=== PATIENT | female | born 1975 | race Caucasian/White ===

== ENCOUNTER 2017-12-17 12:16 | Observation (INO) | payer BC, OTHER, SELFPAY ==
[2017-12-17] VITALS (11 sets, daily range): BP systolic 92–126; BP diastolic 63–81; PULSE 61–71; RESP 16–19; TEMP 36.6–36.8; O2SAT 96–100; BMI 32.2; BMI 27.4; BMI 82.5
--- NOTE | 2017-12-17 12:27 | EKG12_ITS ---
Test Reason : REPEAT-CP Blood Pressure : / mmHG Vent. Rate : 064 BPM Atrial Rate : 064 BPM P-R Int : 176 ms QRS Dur : 096 ms QT Int : 426 ms P-R-T Axes : 012 009 019 degrees QTc Int : 439 ms Normal sinus rhythm Normal ECG Confirmed by SONYA GONCALVES, LEDY ([id number]), food editor RICH PARSONS ([id number]) on 12/20/2017 1:01:21 PM Referred By: SALEEM Confirmed By:LEDY HASSAN MD
--- NOTE | 2017-12-17 12:32 | RAD_ITS ---
STUDY: X-RAY CHEST REASON FOR EXAM: Female, 42 years old. Chest and back pain, short of breath. TECHNIQUE: Single portable frontal chest. COMPARISON: August 15, 2015. FINDINGS: The lungs are clear and expanded. There is no demonstrated pleural abnormality. Normal size heart. Normal mediastinum and flaca. Normal visualized pulmonary arteries. Normal visualized aortic arch and descending thoracic aorta. Normal visualized thoracic spine. Normal visualized ribs, clavicles, and shoulders. There is no demonstrated abnormality of the visualized soft tissue structures of the upper abdomen. RAD/Chest 1 View (Portable) IMPRESSION: Normal x-ray examination of the chest. Electronically Signed: Jerald Simon MD at 12:54 EDT , Service support ,
[2017-12-17] MEDS: Aspirin 81 MG TAB.CHEW 324 MG PO (12:48)
[2017-12-17] MEDS: 0.9% Normal Saline 1,000 ML 150 ML IV (12:50)
[2017-12-17 12:52] LABS: Absolute Lymphocyte Count 1.79 X10^3/ul (0.83-4.51); Absolute Neutrophil Count 5.7 X10^3/uL (2.0-7.7); Basophil# 0.02 X10^3/uL; Basophil% 0.2 % (0-1); Eosinophil# 0.05 X10^3/uL; Eosinophils% 0.6 % (0-5); Hematocrit 41.1 % (37-47); Hemoglobin 13.4 g/dl (12.0-15.0); Lymphocyte # 1.79 X10^3/ul (4.0); Lymphocyte % 22.1 % (19-41); Mean Corp Hgb Conc 32.6 g/gl (32-36); Mean Corpuscular Hgb 31.8 pg (27.0-32.0); Mean Corpuscular Volume 97.4 fL (81-99); Mean Platelet Vol. 9.6 fl (6.2-12.0); Monocyte# 0.55 X10^3/uL; Monocyte% 6.8 % (0-10); Neutrophil # 5.68 X10^3/uL (2.7-7.7); Neutrophil % 70.2 % (47-70); Platelet Count 184 K/mm3 (150-450); RBC Distribution Width CV 13.4 % (11.6-14.6); RBC Distribution Width SD 47.7 fl (35.1-43.9); Red Blood Count 4.22 M/mm3 (4.2-5.4); White Blood Count 8.1 K/mm3 (4.4-11.0)
[2017-12-17 12:56] LABS: POSITIVE COUNT NO; POSITIVE DIFFERENTIAL NO; POSITIVE MORPHOLOGY NO
[2017-12-17 13:01] LABS: D-Dimer Quantitative (DVT/PE) 0.28 FEU/ug/m (0.27-0.49)
[2017-12-17 13:09] LABS: Anion Gap 5 (5-15); BUN 13 mg/dL (7-18); BUN/Creat Ratio 13.9 RATIO (10-20); Calcium,Total 8.9 mg/dL (8.5-10.1); Chloride 105 mmol/L (98-107); Creatinine, Serum 0.94 mg/dL (0.55-1.02); EST Glomerular Filtration Rate 70 mL/min (>60); Est Glom Filt Rate - Afr Amer 85 mL/min (>60); Estimated Creatinine Clearance 65.81 ml/min; Glucose 97 mg/dL (74-106); Potassium 3.8 mmol/L (3.5-5.1); Sodium Level 139 mmol/L (136-145)
--- NOTE | 2017-12-17 13:13 | EKG12_ITS ---
Test Reason : CP Blood Pressure : / mmHG Vent. Rate : 073 BPM Atrial Rate : 073 BPM P-R Int : 170 ms QRS Dur : 100 ms QT Int : 408 ms P-R-T Axes : -01 010 025 degrees QTc Int : 449 ms Normal sinus rhythm Normal ECG Confirmed by SONYA GONCALVES, LEDY ([id number]), editor publications RICH PARSONS ([id number]) on 12/20/2017 1:01:34 PM Referred By: SALEEM Confirmed By:LEDY HASSAN MD
--- NOTE | 2017-12-17 13:14 | ED.VISSUMM ---
- ER Visit Summary Date of Service: 12/17/17 Chief Complaint: [S pain] History of Present Illness: The patient is a 42 F [presents to the emergency department chest discomfort that started around 1115. Patient states that she was at work when she developed sudden onset of retrosternal chest discomfort that went up into her head. Patient developed discomfort into her left arm and shoulder. Patient felt lightheaded and dizzy with it and short of breath. Patient currently rates her pain a 7 out of 10 and describes it as a crushing heaviness. Patient is never had symptoms like this before. She denies recent travel or surgery. Denies any abdominal pain.] Physical Examination: [HEENT-PERRLA, EOMI. Cranial nerves II through XII grossly intact. TMs clear. Mucous membranes moist. No adenopathy. Cardiovascular-regular rate and rhythm without murmur or ectopy Lungs-clear to auscultation, chest wall stable without crepitus or subcu emphysema Abdomen-normoactive bowel sounds, soft, nontender, no rebound or rigidity, no peritoneal signs. Extremities-intact ?4, normal range of motion, normal pulses, atraumatic] Test Results: [EKG obtained on arrival shows sinus rhythm with a ventricular rate of 73 bpm with no acute ST segment changes.] CBC with differential shows white blood cell count of 8.1, hemoglobin 13, hematocrit 41, platelets 24. Chemistries unremarkable. Troponin less than 0.02. D-dimer was 0.28. Chest x-ray showed nothing acute. Emergency Department Course and Treatment: [Patient received aspirin in the emergency department as well as sublingual nitro which really did not seem to improve her pain much therefore patient received fentanyl 25 mcg IV.] Treatment Plan: [Admit for further workup and evaluation] Disposition: [Admit] Impression: [Chest pain-rule out acute coronary syndrome] This note was generated with [employer] dictation software. It may contain incorrect words, spelling, and punctuation that were not noted in review of the chart prior to signing ED Disposition - Plan for ED Patient: Chief Complaint: Chest Pain Referrals: Gumaro Gil [Primary Care Provider] -
--- NOTE | 2017-12-17 13:17 | ED.DCSUM_ITS ---
- ER Visit Summary Date of Service: 12/17/17 Chief Complaint: [S pain] History of Present Illness: The patient is a 42 F [presents to the emergency department chest discomfort that started around 1115. Patient states that she was at work when she developed sudden onset of retrosternal chest discomfort that went up into her head. Patient developed discomfort into her left arm and shoulder. Patient felt lightheaded and dizzy with it and short of breath. Patient currently rates her pain a 7 out of 10 and describes it as a crushing heaviness. Patient is never had symptoms like this before. She denies recent travel or surgery. Denies any abdominal pain.] Physical Examination: [HEENT-PERRLA, EOMI. Cranial nerves II through XII grossly intact. TMs clear. Mucous membranes moist. No adenopathy. Cardiovascular-regular rate and rhythm without murmur or ectopy Lungs-clear to auscultation, chest wall stable without crepitus or subcu emphysema Abdomen-normoactive bowel sounds, soft, nontender, no rebound or rigidity, no peritoneal signs. Extremities-intact ?4, normal range of motion, normal pulses, atraumatic] Test Results: [EKG obtained on arrival shows sinus rhythm with a ventricular rate of 73 bpm with no acute ST segment changes.] CBC with differential shows white blood cell count of 8.1, hemoglobin 13, hematocrit 41, platelets 24. Chemistries unremarkable. Troponin less than 0.02. D-dimer was 0.28. Chest x- ray showed nothing acute. Emergency Department Course and Treatment: [Patient received aspirin in the emergency department as well as sublingual nitro which really did not seem to improve her pain much therefore patient received fentanyl 25 mcg IV.] Treatment Plan: [Admit for further workup and evaluation] Disposition: [Admit] Impression: [Chest pain-rule out acute coronary syndrome] This note was generated with [employer] dictation software. It may contain incorrect words, spelling, and punctuation that were not noted in review of the chart prior to signing ED Disposition - Plan for ED Patient: Chief Complaint: Chest Pain Referrals: Gumaro Gil [Primary Care Provider] -
--- NOTE | 2017-12-17 13:49 | PCM.HP.STD ---
Problem List (1) Chest pain Status: Acute (2) Hypertension Status: Chronic History of Present Illness Date of Admission: 12/17/17 Chief Complaint: chest pain. The patient is a 42 year old F she was doing some heavy lifting at work where she started experiencing midsternal chest pain. Pain went to her back, upper jaw and down her left arm causing some numbness. Patient stated that she felt like she was getting pinched in the middle of her chest. She did have some associated dizziness. No abdominal pain, no nausea or vomiting. Patient has never had any pain like this before. Patient does heavy lifting at work and at this occurred while she was working. It has persisted despite being given aspirin and nitroglycerin. Patient did decline the fentanyl. Patient is being admitted for further chest pain evaluation. [] Past Medical History Past Medical History (Chronic Problems): Chronic Problems Hypertension (Chronic) Allergies acetaminophen [From Darvocet-N] Allergy (Verified 12/17/17 12:20) Swelling propoxyphene [From Darvocet-N] Allergy (Verified 12/17/17 12:20) Swelling Home Medications: Ambulatory Orders Medication Instructions Recorded Metoprolol Tartrate [Lopressor 100 mg PO DAILY 08/15/15 (Beta Nato)] Lorazepam [Ativan] 1 mg PO DAILY PRN PRN 04/03/16 Hydrochlorothiazide [Hctz] 25 mg PO DAILY 12/17/17 Surgical History: - - We will ligation Psychiatric History: No pertinent psych hx Smoking Status: Heavy Smoker (>10/day) Tobacco Use: Cigarettes Alcohol: Occasional Drugs: None - *Family History Maternal History Items: - - No coronary artery disease Review of Systems Constitutional: Denies: Chills, Fever, Weight Change Eyes: Denies: Blurred vision, Double vision HEENT: Denies: Head Aches, Sinus Congestion, Sinus Drainage Cardiovascular: Reports: Chest Pain. Denies: Edema, Palpitations Respiratory: Denies: Cough, Shortness of breath at rest, Sputum production Gastrointestinal: Denies: Abdominal Pain, Nausea, Vomiting Genitourinary: Denies: Dysuria Musculoskeletal: Reports: Arm Pain - Left arm tingling Skin: Denies: Rash, Wounds Neurological: Denies: Numbness, Tingling, Focal weakness Psychiatric: Denies: Anxiety, Depression, Homicidal Ideations, Suicidal Ideations Hematologic/ Lymphatic: Denies: Easy Bruising, Easy Bleeding, Hx of blood clot VTE Information - Inpt Only VTE Present on Admission: No VTE Mechan Device Prophylaxis: None VTE Pharm Prophylaxis ordered?: No Reason prophylaxis not ordered:: Procedure Not Indicated Patient Problems: Active and Suspected Problems Chest pain (Acute) - Physical Exam General: Alert, Cooperative, No apparent distress HEENT: Atraumatic, Normocephalic Neck: No Nodes, Thyroid Normal Size and Texture Lungs: Clear to auscultation, Normal air movement, No rhonchi, No wheeze Cardiovascular: Regular rate, Regular Rhythm, Normal S1, Normal S2, No murmurs Abdomen: Bowel Sounds Present, Soft, Non Tender, Non-Distended, No Hepato-splenomegaly Extremities: No edema, No Calf Tenderness Musculoskeletal: No Tenderness to Palpation of Joints or Extremities, No Muscle Wasting Psych/Mental Status: Normal Affect, Appropriate Vital Signs Temp Pulse Resp BP Pulse Ox 36.6 C 64 19 H 92/69 96 12/17/17 12:18 12/17/17 13:10 12/17/17 12:18 12/17/17 13:10 12/17/17 12:46 Oxygen Delivery Method Room Air Weight: 82.5 kg Body Mass Index (BMI) 32.2 Laboratory Tests Past 24 Hrs 12/17/17 12/17/17 12/17/17 12:45 12:45 12:45 WBC 8.1 RBC 4.22 Hgb 13.4 Hct 41.1 MCV 97.4 MCH 31.8 MCHC 32.6 RDW 13.4 RDW Differential 47.7 H Plt Count 184 MPV 9.6 Immature Gran % (Auto) 0.100 Neut % (Auto) 70.2 H Lymph % (Auto) 22.1 [place] % (Auto) 6.8 Eos % (Auto) 0.6 Baso % (Auto) 0.2 Absolute Neuts (auto) 5.7 Absolute Lymphs (auto) 1.79 Total Counted Not Reportable D-Dimer Quant (PE/DVT) 0.28 Sodium 139 Potassium 3.8 Chloride 105 Carbon Dioxide 29.0 Anion Gap 5 BUN 13 Creatinine 0.94 Estim Creat Clear Calc 65.81 Est GFR (MDRD) Af Amer 85 Est GFR (MDRD) Non-Af 70 BUN/Creatinine Ratio 13.9 Glucose 97 Calcium 8.9 Troponin I < 0.02 Assessment/Plan Active and Suspected Problems Chest pain (Acute) 1. Chest pain Concern for cardiac Patient's heart score is only 2 but she still having some ongoing pain, so I feel that would be prudent to bring her in have a further cardiac evaluation with a stress echocardiogram. Another component could be just muscular skeletal as patient does heavy lifting. The patient does develop elevation in her cardiac markers and would consult cardiology. 2. Hypertension: Continue with HCTZ and metoprolol Code Visit OBSV E&M: 05265 Initial observation care L2
--- NOTE | 2017-12-17 13:56 | HP.PCM_ITS ---
Problem List (1) Chest pain Status: Acute (2) Hypertension Status: Chronic History of Present Illness Date of Admission: 12/17/17 Chief Complaint: chest pain. The patient is a 42 year old F she was doing some heavy lifting at work where she started experiencing midsternal chest pain. Pain went to her back, upper jaw and down her left arm causing some numbness. Patient stated that she felt like she was getting pinched in the middle of her chest. She did have some associated dizziness. No abdominal pain, no nausea or vomiting. Patient has never had any pain like this before. Patient does heavy lifting at work and at this occurred while she was working. It has persisted despite being given aspirin and nitroglycerin. Patient did decline the fentanyl. Patient is being admitted for further chest pain evaluation. [] Past Medical History Past Medical History (Chronic Problems): Chronic Problems Hypertension (Chronic) Allergies acetaminophen [From Darvocet-N] Allergy (Verified 12/17/17 12:20) Swelling propoxyphene [From Darvocet-N] Allergy (Verified 12/17/17 12:20) Swelling Home Medications: Ambulatory Orders Medication Instructions Recorded Metoprolol Tartrate [Lopressor 100 mg PO DAILY 08/15/15 (Beta Nato)] Lorazepam [Ativan] 1 mg PO DAILY PRN PRN 04/03/16 Hydrochlorothiazide [Hctz] 25 mg PO DAILY 12/17/17 Surgical History: - - We will ligation Psychiatric History: No pertinent psych hx Smoking Status: Heavy Smoker (>10/day) Tobacco Use: Cigarettes Alcohol: Occasional Drugs: None - *Family History Maternal History Items: - - No coronary artery disease Review of Systems Constitutional: Denies: Chills, Fever, Weight Change Eyes: Denies: Blurred vision, Double vision HEENT: Denies: Head Aches, Sinus Congestion, Sinus Drainage Cardiovascular: Reports: Chest Pain. Denies: Edema, Palpitations Respiratory: Denies: Cough, Shortness of breath at rest, Sputum production Gastrointestinal: Denies: Abdominal Pain, Nausea, Vomiting Genitourinary: Denies: Dysuria Musculoskeletal: Reports: Arm Pain - Left arm tingling Skin: Denies: Rash, Wounds Neurological: Denies: Numbness, Tingling, Focal weakness Psychiatric: Denies: Anxiety, Depression, Homicidal Ideations, Suicidal Ideations Hematologic/ Lymphatic: Denies: Easy Bruising, Easy Bleeding, Hx of blood clot VTE Information - Inpt Only VTE Present on Admission: No VTE Mechan Device Prophylaxis: None VTE Pharm Prophylaxis ordered?: No Reason prophylaxis not ordered:: Procedure Not Indicated Patient Problems: Active and Suspected Problems Chest pain (Acute) - Physical Exam General: Alert, Cooperative, No apparent distress HEENT: Atraumatic, Normocephalic Neck: No Nodes, Thyroid Normal Size and Texture Lungs: Clear to auscultation, Normal air movement, No rhonchi, No wheeze Cardiovascular: Regular rate, Regular Rhythm, Normal S1, Normal S2, No murmurs Abdomen: Bowel Sounds Present, Soft, Non Tender, Non-Distended, No Hepato- splenomegaly Extremities: No edema, No Calf Tenderness Musculoskeletal: No Tenderness to Palpation of Joints or Extremities, No Muscle Wasting Psych/Mental Status: Normal Affect, Appropriate Vital Signs Temp Pulse Resp BP Pulse Ox 36.6 C 64 19 H 92/69 96 12/17/17 12:18 12/17/17 13:10 12/17/17 12:18 12/17/17 13:10 12/17/17 12:46 Oxygen Delivery Method Room Air Weight: 82.5 kg Body Mass Index (BMI) 32.2 Laboratory Tests Past 24 Hrs 12/17/17 12/17/17 12/17/17 12:45 12:45 12:45 WBC 8.1 RBC 4.22 Hgb 13.4 Hct 41.1 MCV 97.4 MCH 31.8 MCHC 32.6 RDW 13.4 RDW Differential 47.7 H Plt Count 184 MPV 9.6 Immature Gran % (Auto) 0.100 Neut % (Auto) 70.2 H Lymph % (Auto) 22.1 [place] % (Auto) 6.8 Eos % (Auto) 0.6 Baso % (Auto) 0.2 Absolute Neuts (auto) 5.7 Absolute Lymphs (auto) 1.79 Total Counted Not Reportable D-Dimer Quant (PE/DVT) 0.28 Sodium 139 Potassium 3.8 Chloride 105 Carbon Dioxide 29.0 Anion Gap 5 BUN 13 Creatinine 0.94 Estim Creat Clear Calc 65.81 Est GFR (MDRD) Af Amer 85 Est GFR (MDRD) Non-Af 70 BUN/Creatinine Ratio 13.9 Glucose 97 Calcium 8.9 Troponin I < 0.02 Assessment/Plan Active and Suspected Problems Chest pain (Acute) 1. Chest pain * Concern for cardiac * Patient's heart score is only 2 but she still having some ongoing pain, so I feel that would be prudent to bring her in have a further cardiac evaluation with a stress echocardiogram. Another component could be just muscular skeletal as patient does heavy lifting. * The patient does develop elevation in her cardiac markers and would consult cardiology. 2. Hypertension: Continue with HCTZ and metoprolol Code Visit OBSV E&M: 84146 Initial observation care L2
[2017-12-17] MEDS: hydroCHLOROthiazide 25 MG Tablet PO (15:28)
[2017-12-18] VITALS (7 sets, daily range): BP systolic 102–129; BP diastolic 66–88; PULSE 57–79; RESP 16; TEMP 36.4–36.7; O2SAT 97–100
[2017-12-18 03:42] LABS: Hemoglobin 12.9 g/dl (12.0-15.0); Mean Corp Hgb Conc 32.3 g/gl (32-36); Mean Corpuscular Hgb 32.2 pg (27.0-32.0); Mean Corpuscular Volume 99.8 fL (81-99); Platelet Count 173 K/mm3 (150-450); RBC Distribution Width CV 13.3 % (11.6-14.6); RBC Distribution Width SD 47.6 fl (35.1-43.9); Red Blood Count 4.01 M/mm3 (4.2-5.4); Scan Indicated on CBC? Y/N NO; White Blood Count 8.8 K/mm3 (4.4-11.0)
[2017-12-18 03:46] LABS: Prothrombin Time (Protime)PT. 13.4 SECONDS (11.7-14.9)
[2017-12-18 03:47] LABS: Partial Thromboplast Time 29.8 Seconds (24.1-36.2)
[2017-12-18 03:56] LABS: Cholesterol 167 mg/dL (200); High Density Lipoprotein 49 mg/dL; Triglycerides 96 mg/dL; Very Low Density Lipoprotein 19 mg/dL (5-40)
--- NOTE | 2017-12-18 04:00 | EKG12_ITS ---
Test Reason : AM EKG Blood Pressure : / mmHG Vent. Rate : 062 BPM Atrial Rate : 062 BPM P-R Int : 194 ms QRS Dur : 104 ms QT Int : 430 ms P-R-T Axes : 062 021 029 degrees QTc Int : 436 ms Normal sinus rhythm Normal ECG Confirmed by SONYA GONCALVES, LEDY ([id number]), metropolitan editor RICH PARSONS ([id number]) on 12/20/2017 1:23:47 PM Referred By: LATONYA Confirmed By:LEDY HASSAN MD
[2017-12-18 04:07] LABS: Anion Gap 5 (5-15); BUN 16 mg/dL (7-18); BUN/Creat Ratio 18.4 RATIO (10-20); Calcium,Total 8.3 mg/dL (8.5-10.1); Chloride 106 mmol/L (98-107); Creatinine, Serum 0.87 mg/dL (0.55-1.02); EST Glomerular Filtration Rate 76 mL/min (>60); Est Glom Filt Rate - Afr Amer 93 mL/min (>60); Glucose 107 mg/dL (74-106); Potassium 3.4 mmol/L (3.5-5.1); Sodium Level 143 mmol/L (136-145)
--- NOTE | 2017-12-18 05:55 | STE_ITS ---
Reason For Study: Chest Pain Stress Results Protocol: Dusty Protocol Maximum Predicted HR: 180 bpm Target HR: 153 bpm% Max imum Predicted HR: 85 % DurationHeart Rate Stage (mm:ss) (bpm) BP Baseline 59 102/70 Dusty Protocol Stage I 3:00 10 9 140/70 Dusty Protocol Stage II 3:00 13 3 138/64 Dusty Protocol Stage III 3:00 15 3 156/70 Recovery 87 118/72 Stress Duration: 9:00 mm:ss Maximum Stress HR: 153 bpmM ETS: 10 Baseline Echocardiogram Findings Stress Echo Wall motion Data Resting WMIntermediate WMStress WM Resting Wall Motion Wall Motion Stress All segments Normal. All segments Hyperkinetic. Ejection Fraction 55 %. Ejection Fraction 70 %. Stress Results Heart rate response: appropriate Blood pressure response: normal resting BP - appropriate response Arrhythmias: none Functional capacity: good Stopped secondary to: chest discomfort. EKG Data Baseline ECG: Normal Sinus Rhythm. Peak exercise ECG: No Obvious ECG Changes. Symptoms with Stress The patient noted chest tightness at peak exercise with spontaneous improvement in recovery. Interpretation Summary Negative (Adequate) Stress Echocardiogram Ordering Physician: Siddharth Abdalla Referring Physician: Sanket Driscoll MD Performed By: Norma Fountain, ZAIDCS, RVT
[2017-12-18] MEDS: Aspirin E.C. 81 MG Tablet PO (06:08)
--- NOTE | 2017-12-18 07:33 | PCM.PN.HOSP ---
Patient Problems: Active and Suspected Problems Chest pain (Acute) Vitals/I&O's: Vital Signs Temp Pulse Resp BP Pulse Ox 97.6 F L 57 L 16 129/88 H 98 12/18/17 03:00 12/18/17 03:00 12/18/17 03:00 12/18/17 03:00 12/18/17 07:23 Oxygen Delivery Method Room Air Weight: 70.307 kg Body Mass Index (BMI) 27.4 Intake and Output for Last 24 Hours 12/16/17 12/17/17 12/18/17 23:59 23:59 23:59 Intake Total 480 / 480 Balance 480 / 480 Laboratory Results 12/17/17 16:02: Troponin I < 0.02 12/17/17 18:10: Troponin I < 0.02 12/18/17 03:22: Triglycerides 96, Cholesterol 167, LDL Cholesterol 99, VLDL Cholesterol 19, HDL Cholesterol 49 12/18/17 03:22: WBC 8.8, RBC 4.01 L, Hgb 12.9, Hct 40.0, MCV 99.8 H, MCH 32.2 H, MCHC 32.3, RDW 13.3, RDW Differential 47.6 H, Plt Count 173, MPV 10.0 12/18/17 03:22: PT 13.4, INR 1.0, APTT 29.8 12/18/17 03:22: Sodium 143, Potassium 3.4 L, Chloride 106, Carbon Dioxide 32.0, Anion Gap 5, BUN 16, Creatinine 0.87, Estim Creat Clear Calc 71.10, Est GFR (MDRD) Af Amer 93, Est GFR (MDRD) Non-Af 76, BUN/Creatinine Ratio 18.4, Glucose 107 H, Calcium 8.3 L Current Medications Acetaminophen (Tylenol) 650 mg PO Q6H PRN PRN PRN Reason: Mild Pain (1-3)/Temp > 100.7 F Aspirin (Ecotrin) 81 mg PO DAILY@0800 [facility] Last Admin: 12/18/17 06:08 Dose: 81 mg Hydrochlorothiazide (Hctz) 25 mg PO DAILY [facility] Last Admin: 12/17/17 15:28 Dose: 25 mg Lorazepam (Ativan) 1 mg PO DAILY PRN PRN PRN Reason: ANXIETY Magnesium Hydroxide (Milk Of Magnesia) 30 ml PO DAILY PRN PRN Reason: Constipation Metoprolol Succinate (Toprol Xl (Beta Nato)) 100 mg PO DAILY [facility] Nicotine (Nicoderm Cq (Pbkc)) 21 mg TRANSDERM. DAILY [facility] Last Admin: 12/17/17 17:06 Dose: 21 mg Nitroglycerin (Nitrostat) 0.4 mg SUBLINGUAL Q5M PRN PRN Reason: CHEST PAIN Oxycodone HCl (Oxyir) 5 - 10 mg PO Q4H PRN PRN PRN Reason: MOD-SEVERE PAIN (4-10/10) Medical Necessity - Tobacco Use Smoking Status: Heavy Smoker (>10/day) Tobacco Use: Cigarettes Assessment/Plan Active and Suspected Problems Chest pain (Acute)
[2017-12-18] MEDS: hydroCHLOROthiazide 25 MG Tablet PO (08:59)
[2017-12-18] MEDS: Metoprolol(XL)Succ 100 MG Tablet PO (08:59)
--- NOTE | 2017-12-18 11:31 | PCM.DC ---
- Discharge Diagnoses Current Active Problems: Current Active and Chronic Problems Chest pain (Acute) Hypertension (Chronic) You will use the following diet at home:: Cardiac Your food should be the consistency of: Regular Discharge Activity: Return to Normal Activity Allergies/Adverse Reactions: Allergies acetaminophen [From Darvocet-N] Allergy (Verified 12/17/17 12:20) Swelling propoxyphene [From Darvocet-N] Allergy (Verified 12/17/17 12:20) Swelling Medications to take at Discharge Lorazepam [Ativan] 1 mg PO DAILY PRN PRN 04/03/16 Hydrochlorothiazide [Hctz] 25 mg PO DAILY 12/17/17 Metoprolol Succinate 100 mg PO DAILY 12/17/17 Primary Care Physician: Gumaro Gil [Primary Care Provider] - Please follow up with your Primary Care Physician in: 1-2 weeks Please Follow Up With: OBGYN - uterine masses When: 1 week Proposed Discharge Date: 12/18/17
--- NOTE | 2017-12-18 16:44 | PCM.DC.SUM ---
<Andrea Granda - Last Filed: 12/18/17 16:44> Discharge Date and Diagnosis Date of Admission: 12/17/17 Date of Discharge: 12/18/17 - Primary Discharge Diagnosis Chest pain - musculoskeletal Unspecified uterine masses Nicotine abuse HTN Anxiety - Secondary Discharge Diagnosis Chronic Problems Hypertension (Chronic) Hospital Course and Treatment Imaging Results: RAD/Chest 1 View (Portable) IMPRESSION: Normal x-ray examination of the chest. Stress Echo: Interpretation Summary Negative (Adequate) Stress Echocardiogram EF 55% Operations: None Procedures: Stress test Summary of Care Provided: Physical exam on day of discharge: General: Resting comfortably NAD Psych: A/Ox3, anxious affect and tearful HEENT: PEARRLA AT NC Neck: Supple NT CV: RRR no m/t/r/g/h Resp: CTA Abd: [id number] Soft NT no guarding or rigidity Ext: DP2+= no edema Skin: W/D normal turgor Lymph/Heme: No active bleeding or adenopathy Neuro: CN2-12 intact Hospital course: The patient is a 42 year old F with a history of hypertension, anxiety, nicotine abuse, and recently discovered multiple uterine masses of unclear etiology, who presented to the emergency room with a chief complaint of midsternal chest pain. She was given nitroglycerin with relief of her pain. She had a negative troponin, and negative EKG, negative chest x-ray. She is admitted to the hospital for concern for cardiac etiology. She had troponin cycled, repeat EKG, cardiac monitoring, and a stress echo and the following morning. Her workup was negative. The patient did have return of chest pain briefly during her stress test but however remained resolved following this. The patient was very anxious and tearful discussing a recent finding in the emergency room of uterine masses on transvaginal ultrasound that was done for dysfunctional uterine bleeding. She was not told a diagnosis but told to follow-up with her BULB GROWER which she has not done because she states she does not have time for it-this was about 6 months ago. We advised at this time to continue her usual home medications, she should follow-up with her PCP, and follow-up with her BULB GROWER. We also discussed smoking cessation and I provided her with nicotine patch prescription to begin the taper for smoking cessation. She was discharged home in stable condition. This patient was seen by Andrea Granda PA-C under the supervision of Doctor Yarelis. [] Discharge Diet: Low fat/ Low Cholesterol, 2000 mg Sodium Diet Discharge Activity: Return to Normal Activity Additional Activity Instructions:: No smoking while utilizing nicotine patches. Home Medications: Medications to take at Discharge Lorazepam [Ativan] 1 mg PO DAILY PRN PRN 04/03/16 Hydrochlorothiazide [Hctz] 25 mg PO DAILY 12/17/17 Metoprolol Succinate 100 mg PO DAILY 12/17/17 Primary Care Physician: Gumaro Gil [Primary Care Provider] - Please follow up with your Primary Care Physician in: 1-2 weeks Please Follow Up With: Gumaro Bright MD When: 1 week Disposition: Home Minutes spent on discharge:: 35 Patient Condition:: Stable Medical Necessity - Tobacco Use Smoking Status: Heavy Smoker (>10/day) Tobacco Use: Cigarettes Meaningful Use Info Meaningful Use Diagnoses (Choose all that apply): None applicable <Yakelin Santoyo - Last Filed: 12/18/17 18:34> Discharge Date and Diagnosis - Secondary Discharge Diagnosis Chronic Problems Hypertension (Chronic) Hospital Course and Treatment Summary of Care Provided: The patient is a 42 year old F [] Code Visit OBSV E&M: 89593 Observation care discharge
--- NOTE | 2017-12-18 16:49 | DS.PCM_ITS ---
<Andrea Granda - Last Filed: 12/18/17 16:44> Discharge Date and Diagnosis Date of Admission: 12/17/17 Date of Discharge: 12/18/17 - Primary Discharge Diagnosis Chest pain - musculoskeletal Unspecified uterine masses Nicotine abuse HTN Anxiety - Secondary Discharge Diagnosis Chronic Problems Hypertension (Chronic) Hospital Course and Treatment Imaging Results: RAD/Chest 1 View (Portable) IMPRESSION: Normal x-ray examination of the chest. Stress Echo: Interpretation Summary Negative (Adequate) Stress Echocardiogram EF 55% Operations: None Procedures: Stress test Summary of Care Provided: Physical exam on day of discharge: General: Resting comfortably NAD Psych: A/Ox3, anxious affect and tearful HEENT: PEARRLA AT NC Neck: Supple NT CV: RRR no m/t/r/g/h Resp: CTA Abd: NABSX4 Soft NT no guarding or rigidity Ext: DP2+= no edema Skin: W/D normal turgor Lymph/Heme: No active bleeding or adenopathy Neuro: CN2-12 intact Hospital course: The patient is a 42 year old F with a history of hypertension, anxiety, nicotine abuse, and recently discovered multiple uterine masses of unclear etiology, who presented to the emergency room with a chief complaint of midsternal chest pain. She was given nitroglycerin with relief of her pain. She had a negative troponin, and negative EKG, negative chest x-ray. She is admitted to the hospital for concern for cardiac etiology. She had troponin cycled, repeat EKG, cardiac monitoring, and a stress echo and the following morning. Her workup was negative. The patient did have return of chest pain briefly during her stress test but however remained resolved following this. The patient was very anxious and tearful discussing a recent finding in the emergency room of uterine masses on transvaginal ultrasound that was done for dysfunctional uterine bleeding. She was not told a diagnosis but told to follow -up with her [employer]WORK[employer] which she has not done because she states she does not have time for it-this was about 6 months ago. We advised at this time to continue her usual home medications, she should follow-up with her PCP, and follow-up with her [employer]. We also discussed smoking cessation and I provided her with nicotine patch prescription to begin the taper for smoking cessation. She was discharged home in stable condition. This patient was seen by Andrea Granda PA-C under the supervision of Doctor Yarelis. [] Discharge Diet: Low fat/ Low Cholesterol, 2000 mg Sodium Diet Discharge Activity: Return to Normal Activity Additional Activity Instructions:: No smoking while utilizing nicotine patches. Home Medications: Medications to take at Discharge Lorazepam [Ativan] 1 mg PO DAILY PRN PRN 04/03/16 Hydrochlorothiazide [Hctz] 25 mg PO DAILY 12/17/17 Metoprolol Succinate 100 mg PO DAILY 12/17/17 Primary Care Physician: Gumaro Gil [Primary Care Provider] - Please follow up with your Primary Care Physician in: 1-2 weeks Please Follow Up With: Gumaro Bright MD When: 1 week Disposition: Home Minutes spent on discharge:: 35 Patient Condition:: Stable Medical Necessity - Tobacco Use Smoking Status: Heavy Smoker (>10/day) Tobacco Use: Cigarettes Meaningful Use Info Meaningful Use Diagnoses (Choose all that apply): None applicable <Yakelin Santoyo - Last Filed: 12/18/17 18:34> Discharge Date and Diagnosis - Secondary Discharge Diagnosis Chronic Problems Hypertension (Chronic) Hospital Course and Treatment Summary of Care Provided: The patient is a 42 year old F [] Code Visit OBSV E&M: 31575 Observation care discharge
== END 2017-12-18 11:32 | disposition home or self-care (01) ==
LOC: ED 13:45 → PCU 13:58
PROVIDERS: Emergency Provider Emergency Medicine; Visit Provider Internal Medicine
DX: R07.89 Other chest pain (principal); R42 Dizziness and giddiness; R06.02 Shortness of breath; I10 Essential (primary) hypertension; R20.0 Anesthesia of skin; F17.210 Nicotine dependence, cigarettes, uncomplicated; Z79.899 Other long term (current) drug therapy; F41.9 Anxiety disorder, unspecified; N85.9 Noninflammatory disorder of uterus, unspecified
CPT/HCPCS: 36415; 71045; 80048; 80061; 84484; 85025; 85027; 85379; 85610; 85730; 93005; 93017; 93350; 96360; 96361; 99218; 99285; 99406; J7030; G0378

== ENCOUNTER → 2017-12-26 18:23 | Outpatient (CLI) | payer BC, OTHER, SELFPAY ==
[2017-12-31 14:08] LABS: HPV Reflexed? NOT INDICATED
== END ==
PROVIDERS: Visit Provider Obstetrics & Gynecology
DX: Z12.4 Encounter for screening for malignant neoplasm of cervix (principal)
CPT/HCPCS: 88175; G0145

== ENCOUNTER → 2018-03-05 17:37 | Outpatient (CLI) | payer BC, OTHER, SELFPAY ==
--- NOTE | 2018-03-05 16:50 | EMB_PTH ---
PATIENT: STACY PAEZ LOC: [facility] U#:[id number] AGE/SX: 50/F ROOM: RE03/05/[address]: Dr. Gumaro Bright MD : 1975 BED: DIS: SPEC #: [id number] RECD: 03/05/18 17:15 STATUS: LINDSEY REQ #: [id number] AMIE: 03/05/18 16:[address]: Gumaro Bright DEPT: SURGICAL PATHOLOGY RECD BY: Tressa Ratliff ENTERED: 03/06/18 07:03 SP TYPE: ENDOM BX/C DANE DR: Dr. Gumaro Gil MD Tissues: Endometrium, NOS Procedures: Surgery Specimen Level IV HEADER OPERATION: Endometrial biopsy PRE-OP DIAGNOSIS: Thickened endometrium 17.3 mm; menorrhagia, LMP 02/04 TISSUE SUBMITTED: Endometrial biopsy MICROSCOPIC DIAGNOSIS Endometrial biopsy: Consistent with internal endometrium. SJ:carleen 03/07/18 MICROSCOPIC DESCRIPTION Slides are reviewed. GROSS DESCRIPTION Received in fixative is one container labeled with the patient's name and designated endometrial biopsy. The specimen consists of multiple irregular fragments of johnson hemorrhagic soft tissue that in aggregate measure 4 x 3 x 0.2 cm. The entire specimen is submitted in two cassettes. / SJ:carleen 03/06/18 TC:5 CPT: 29506
== END ==
PROVIDERS: Visit Provider Obstetrics & Gynecology
DX: N92.0 Excessive and frequent menstruation with regular cycle (principal); R93.8 Abnormal findings on diagnostic imaging of other specified body structures
CPT/HCPCS: 88305

== ENCOUNTER 2018-04-03 05:32 | Day surgery (SDC) | payer BC, OTHER, SELFPAY ==
[2018-04-03] VITALS (8 sets, daily range): BP systolic 95–132; BP diastolic 59–85; PULSE 52–61; RESP 14–18; TEMP 36.5–36.9; O2SAT 93–98; BMI 30.4
--- NOTE | 2018-04-03 05:41 | EKG12_ITS ---
Test Reason : PRE OP Blood Pressure : / mmHG Vent. Rate : 059 BPM Atrial Rate : 059 BPM P-R Int : 188 ms QRS Dur : 102 ms QT Int : 424 ms P-R-T Axes : 000 016 019 degrees QTc Int : 419 ms Sinus bradycardia Otherwise normal ECG Confirmed by SONYA GONCALVES, LEDY ([id number]), editorial specialist RICH PARSONS ([id number]) on 04/05/2018 2:49:24 PM Referred By: Gumaro Bright Confirmed By:LEDY HASSAN MD
[2018-04-03 05:57] LABS: Internal QC Validated? YES +Cl - CLEAR BKGD; Pregnancy, Urine Negative Negative
[2018-04-03 06:19] LABS: Hematocrit 41.8 % (37-47); Hemoglobin 13.4 g/dl (12.0-15.0); Mean Corp Hgb Conc 32.1 g/gl (32-36); Mean Corpuscular Hgb 31.9 pg (27.0-32.0); Mean Corpuscular Volume 99.5 fL (81-99); Platelet Count 128 K/mm3 (150-450); RBC Distribution Width CV 14.8 % (11.6-14.6); RBC Distribution Width SD 53.8 fl (35.1-43.9); White Blood Count 9.1 K/mm3 (4.4-11.0)
[2018-04-03 06:24] LABS: Scan Indicated on CBC? Y/N NO
[2018-04-03 06:30] LABS: International Normalized Ratio 1.1; Prothrombin Time (Protime)PT. 13.8 SECONDS (11.7-14.9)
[2018-04-03 06:31] LABS: Partial Thromboplast Time 29.6 Seconds (24.1-36.2)
[2018-04-03 06:35] LABS: Anion Gap 5 (5-15); BUN 21 mg/dL (7-18); BUN/Creat Ratio 23.7 RATIO (10-20); Calcium,Total 8.5 mg/dL (8.5-10.1); Chloride 108 mmol/L (98-107); Creatinine, Serum 0.89 mg/dL (0.55-1.02); EST Glomerular Filtration Rate 75 mL/min (>60); Est Glom Filt Rate - Afr Amer 90 mL/min (>60); Estimated Creatinine Clearance 68.81 ml/min; Glucose 92 mg/dL (74-106); Potassium 3.9 mmol/L (3.5-5.1); Sodium Level 144 mmol/L (136-145)
--- NOTE | 2018-04-03 07:30 | FALS_PTH ---
PATIENT: STAC[place] [facility] [id number] AGE/SX: 43/F ROOM: RE04/03/[address]: Dr. Gumaro Bright MD : 1975 BED: DIS: 04/03/2018 SPEC #: [id number] RECD: 04/03/18 11:05 STATUS: LINDSEY RELeidy #: [id number] AMIE: 04/03/18 07:[address]: Gumaro Bright DEPT: SURGICAL PATHOLOGY RECD BY: Emiliano Willis ENTERED: 04/03/18 13:02 SP TYPE: FALL TUBES OTHR DR: Dr. Gumaro Gil MD Tissues: A - Fallopian tube B - Endometrium, NOS Procedures: Surgery Specimen Level II Surgery Specimen Level IV HEADER OPERATION: Hysteroscopy, D & C, Charleen PRE-OP DIAGNOSIS: Dysmenorrhea, menorrhagia TISSUE SUBMITTED: A ? Bilateral fallopian tubes, B ? Endometrial curettings MICROSCOPIC DIAGNOSIS A. Right and left fallopian tubes, bilateral salpingectomies: Complete cross sections of benign fallopian tubes with benign paratubal cysts. B. Endometrium, curettings: Secretory endometrium. Rare benign myometrial fragments. AM:carleen 04/04/18 MICROSCOPIC DESCRIPTION Slides are reviewed. GROSS DESCRIPTION A - Received is one container labeled with the patient's name and designated bilateral fallopian tubes. The specimen consists of bilateral fallopian tubes including fimbrial ends in multiple pieces. One of the pieces with fimbrial end measures 3 cm in length and 0.5 cm in diameter. Minute pieces of tissue are also noted measuring 1 x 0.5 x 0.3 cm. These smaller pieces are inked black. The second fallopian tube is received in two pieces. One of the pieces, proximal piece, measures 3 cm in length and 0.5 cm in diameter. The distal fimbrial end measures 3 x 1.5 x 1 cm. Instructional Systems Designer sections are submitted in two cassettes as follows: 1 ? fallopian tube and two smaller detached pieces of tissue, 2 ? second fallopian tube received in two pieces. B - Received in fixative is one container labeled with the patient's name and designated endometrium. The specimen consists of multiple fragments of hemorrhagic soft tissue that in aggregate measure 3 x 2.5 x 0.3 cm. The specimen is totally submitted in one cassette. / SJ:carleen 04/03/18 TC:5 CPT: 24891 x2, 35993
--- NOTE | 2018-04-03 07:38 | DCINST_ITS ---
You will use the following diet at home:: No restrictions Your food should be the consistency of: Regular Discharge Activity: Return to Normal Activity, May Drive, May not drive while taking narcotic pain medications., May Shower Return to work on:: 05/06/18 May shower in (days): 0 May resume sexual activity in: 4-6 weeks Call your doctor if your incision/area has: Sudden Increased Bleeding, Increased Pain/ Swelling, Increased Redness, Foul Smelling Discharge, Swelling at the incision site Call your doctor if you observe: Fever of 101 or Higher, Inability to urinate, Inability to have a bowel movement, Using more than one pad per hour, Shortness of breath, Chest pain, Calf discomfort, Uncontrolled pain Remove Dressing in (days):: 2 Cleanse incision/area with: Soap & Water Allergies/Adverse Reactions: Allergies acetaminophen [From Darvocet-N] Allergy (Verified 04/03/18 06:14) Swelling propoxyphene [From Darvocet-N] Allergy (Verified 04/03/18 06:14) Swelling Medications to take at Discharge Hydrochlorothiazide [Hctz] 25 mg PO DAILY 12/17/17 Metoprolol Succinate 100 mg PO DAILY 12/17/17 Ibuprofen 600 mg PO PRN PRN #30 tab 04/03/18 Oxycodone [Oxyir] 5 mg PO Q4H PRN PRN 7 Days #20 tab 04/03/18 The following prescriptions were given: Oxycodone [Oxyir] 5 mg PO Q4H PRN PRN 7 Days #20 tab PRN Reason: Severe Pain (6-10/10) Ibuprofen 600 mg PO PRN PRN #30 tab PRN Reason: Pain Primary Care Physician: Gumaro Gil MD [Primary Care Provider] - Test Results: Test results from this visit will be discussed in further detail at your follow- up appointment, if applicable. Please Follow Up With: Gumaro Bright MD When: one week Proposed Discharge Date: 04/03/18
--- NOTE | 2018-04-03 07:48 | OP.PCM_ITS ---
Problem List (1) Menorrhagia, premenopausal Status: Chronic (2) Dysmenorrhea Status: Chronic (3) Pelvic pain Status: Chronic Report of Operation Date of Procedure: 04/03/18 Pre-Operative Diagnosis: Menorrhagia, Dysmenorrhea, Pelvic Pain Post-Operative Diagnosis: Same Surgery/Procedure Performed:: Laparoscopic bilateral salpingectomy, hysteroscopy , dilation and curettage, Charleen endometrial ablation Description of Surgical Findings:: Some adhesions of the fallopian tubes to the omentum on the left and the pelvic sidewall on the right. Uterus appeared fibroid. Normal appearing ovaries. No significant adhesions of the bladder or bowel. Normal appearing liver and stomach. coding analyst: Farideh Cee Type of Anesthesia:: General Anesthesiologist: Donald Cooley Special Medications: none Specimen's removed: bilateral fallopian tubes, endometrial curettings Drains: none Estimated Blood Loss (mL): 40cc Fluids Replaced: 900cc Description of Procedure: Sindy was counselled on the scheduled procedure, risks, and expected postoperative recovery. All questions were answered. She was taken to the OR with IV running. She was given two grams of Cefotetan intravenously prior to the procedure for surgical prophylaxis. SCDs were in place from the preoperative area, through surgery and into recovery. General anesthesia was introduced without complication. She was then prepped and draped in the dorsal lithotomy position. The bladder was drained. A uterine manipulator was placed. Attention was then directed to the abdomen where a 5 mm incision was made in the lower base of the umbilicus. The underlying subcutaneous tissue was dissected down to the level of the fascia. The abdomen was then elevated and a Veress needle was placed through the umbilical defect into the abdominal cavity. The abdomen was then inflated to 15 Torr with CO2 gas. The Veress needle was removed and replaced with a 5mm trocar and sleeve. The trocar was removed and replaced with the laparoscope. Findings were as mentioned above. Two 5mm laparoscopic ports were then placed slightly below the level of the umbilicus one on the right and one to the left of the inferior epigastric vessels. Hemostasis was excellent after port placement. Using the Ligasure device the adhesions of the fallopian tube on the left to the omentum were dissected. The fallopian tube was dissected from the fimbriated end to the cornua of the uterus along the mesosalpinx. The tube was removed through the left side port. The right fallopian tube was then removed in a similar fashion as the left. Hemostasis was assured in the abdomen and pelvis. Gas was evacuated from the abdomen and the ports were removed. The port sites were closed with 4-0 Monocryl. Attention was then directed to the vagina. The uterine manipulator was removed. The cervix was then dilated to 20 [place]. The uterus sounded to 9 cm. A hysteroscope was placed. No submucous fibroids or polyps were noted. A sharp curettage was then performed. The Charleen device was then placed through it's preoperative checks. The Charleen device was then placed with cavity length of 5.5 cm. The device was deployed and the cervical balloon inflated. The device was then activated and endometrial ablation of 120 seconds was performed. The device was then removed. The hysteroscope was reintroduced into the endometrial cavity and findings were typical of a post ablation endometrium. All instruments were then removed from the vagina. Hemostasis was adequate. She was reversed from anesthesia and taken to the recovery room in stable condition. Sponge, needle, and instrument counts were correct. Grafts/Implants Used: none - Complications none - Admit VTE Documentation VTE Present on Admission: No VTE Mechan Device Prophylaxis: SCD's VTE Pharm Prophylaxis ordered?: No
[2018-04-03] MEDS: Lubricating Jelly 60 GM Tube 30 GM TOPICAL (07:50)
[2018-04-03] MEDS: Bupivacaine 0.25% 30 ML Vial (08:08)
== END 2018-04-03 13:46 | disposition home or self-care (01) ==
LOC: SDC 05:33 → AC 05:34
PROVIDERS: Visit Provider Obstetrics & Gynecology
PROC: 0U5B8ZZ Destruction of Endometrium, Via Natural or Artificial Opening Endoscopic (ICD-10-PCS; CPT 58558; principal; 2018-04-03 07:15)
PROC: (CPT 58661; 2018-04-03 07:15)
DX: N92.4 Excessive bleeding in the premenopausal period (principal); N92.6 Irregular menstruation, unspecified; N83.8 Other noninflammatory disorders of ovary, fallopian tube and broad ligament; I10 Essential (primary) hypertension; E78.00 Pure hypercholesterolemia, unspecified; F17.200 Nicotine dependence, unspecified, uncomplicated; Z79.899 Other long term (current) drug therapy; Z86.2 Personal history of diseases of the blood and blood-forming organs and certain disorders involving the immune mechanism; Z98.51 Tubal ligation status
CPT/HCPCS: 58563; 58661; 36415; 80048; 81025; 85027; 85610; 85730; 86850; 86900; 88302; 88305; 93005; J7120; J2405

== ENCOUNTER → 2019-06-09 12:48 | Outpatient (CLI) | payer MEDICAID, SELFPAY ==
[2018-04-03 06:17] VITALS: BMI 30.4
--- NOTE | 2019-06-09 | FLU_PTH ---
PATIENT: STACY PAEZ LOC: [facility] U#:[id number] AGE/SX: 50/F ROOM: RE06/09/[address]: Dr. Millie Ellis MD : 1975 BED: DIS: SPEC #: [id number] RECD: 06/09/19 12:07 STATUS: LINDSEY AMAURI #: [id number] AMIE: 06/09/19 00:[address]: Millie Ellis DEPT: CYTOLOGY RECD BY: Michael Schroeder ENTERED: 06/09/19 13:26 SP TYPE: Fluid OTHR DR: MD Dr. Janet Bowen MD Tissues: A - Thyroid gland, NOS B - Thyroid gland, NOS C - Thyroid gland, NOS D - Thyroid gland, NOS Procedures: Special Stain Group II Surgery Specimen Level IV Cytospin Fluid Cytology Other HEADER OPERATION: Ultrasound-guided bilateral thyroid fine needle aspiration PRE-OP DIAGNOSIS: Thyroid nodules TISSUE SUBMITTED: A - Right thyroid nodule for cytology, B - Right thyroid nodule 4 slides, C - Left thyroid nodule for cytology, D - Left thyroid nodule 6 slides DIAGNOSIS CYTOLOGY A. Fine needle aspiration, right thyroid nodule (cytospin and cell block): Adequate for evaluation. Negative, consistent with benign follicular nodule and cystic change. B. Fine needle aspiration, right thyroid nodule (smears): Adequate for evaluation. Negative, consistent with colloid nodule. C. Fine needle aspiration, left thyroid nodule (cytospin and cell block): Negative for malignant cells. See comment. D. Fine needle aspiration, left thyroid nodule (smears): Adequate for evaluation. Negative, consistent with colloid nodule. AM:carleen 06/10/19 COMMENT C. Rare benign follicular cells are present. CYTOLOGY STUDY Slides are reviewed. CYTOLOGY GROSS A - Received is 35 ml of brown cloudy fluid labeled with the patient's name and and designated per the requisition as right thyroid. Submitted for cytology preparation including cell block. B - Received are four smears labeled with the patient's name and designated per the requisition as right thyroid. Submitted for staining. C - Received is 30 ml of brown cloudy fluid labeled with the patient's name and and designated per the requisition as left thyroid. Submitted for cytology preparation including cell block. D - Received are six smears labeled with the patient's name and designated per the requisition as left thyroid. Submitted for staining. / carleen 06/09/19 TC:5 CPT: 10069 x2, 28256 x2, 00542 x2
== END ==
PROVIDERS: Referring Provider Surgery; Visit Provider Surgery
DX: E04.2 Nontoxic multinodular goiter (principal)
CPT/HCPCS: 88108; 88161; 88305; 88313

== ENCOUNTER 2021-03-30 19:47 | Emergency (ER) | payer SELFPAY ==
[2021-03-30 19:47] VITALS: BP 148/86; PULSE 80; RESP 16; TEMP 36.6; O2SAT 99; BMI 33.5
--- NOTE | 2021-03-30 20:35 | EKG12_ITS ---
Test Reason : CHEST PRESSURE Blood Pressure : / mmHG Vent. Rate : 073 BPM Atrial Rate : 073 BPM P-R Int : 172 ms QRS Dur : 110 ms QT Int : 404 ms P-R-T Axes : 057 -07 029 degrees QTc Int : 445 ms Normal sinus rhythm Normal ECG Confirmed by SONYA GONCALVES, LEDY ([id number]), brands editor GEORGE FRITZ ([id number]) on 04/04/2021 9:39:15 AM Referred By: DENNYS Confirmed By:LDEY HASSAN MD
[2021-03-30 20:47] VITALS: BP 112/74; PULSE 72; RESP 3; O2SAT 95
[2021-03-30 20:49] LABS: Absolute Lymphocyte Count 2.55 X10^3/uL (0.83-4.51); Absolute Neutrophil Count 8.1 X10^3/uL (2.0-7.7); Basophil# 0.05 X10^3/uL; Basophil% 0.4 % (0-1); Eosinophil# 0.18 X10^3/uL; Eosinophils% 1.6 % (0-5); Hematocrit 44.3 % (37-47); Hemoglobin 14.4 g/dL (12.0-15.0); Lymphocyte # 2.55 X10^3/ul (0.83-4.51); Mean Corp Hgb Conc 32.5 g/dL (32-36); Mean Corpuscular Hgb 32.7 pg (27.0-32.0); Mean Corpuscular Volume 100.5 fL (81-99); Mean Platelet Vol. 10.1 fl (6.2-12.0); NRBC Flagged by Analyzer 0 % (0-5); Neutrophil # 8.07 X10^3/uL (2.7-7.7); Neutrophil % 69.6 % (47-70); Platelet Count 185 K/mm3 (150-450); RBC Distribution Width CV 13.2 % (11.6-14.6); RBC Distribution Width SD 49.3 fl (35.1-43.9); Red Blood Count 4.41 M/mm3 (4.2-5.4); White Blood Count 11.6 K/mm3 (4.4-11.0)
--- NOTE | 2021-03-30 20:50 | RAD_ITS ---
HISTORY: chest pain EXAMINATION/TECHNIQUE: XR Chest 2 Views: 2 views COMPARISON: 12/17/17 FINDINGS: LINES/DEVICES: None. LUNGS: No pulmonary consolidation, mass, or edema. No pleural effusion or pneumothorax. MEDIASTINUM AND CARDIOVASCULAR STRUCTURES: Cardiac silhouette not enlarged. Central airways and mediastinal contour are unremarkable. BONES AND SOFT TISSUES: No acute bony abnormalities. RAD/Chest PA and Lateral IMPRESSION: No radiographic evidence of acute cardiopulmonary disease. at 2142 Reported and signed by: Jagdeep Schultz MD Electronically Signed: Jagdeep Schultz MD at 21:41 EDT Tel , Service support ,
[2021-03-30] MEDS: Aspirin 81 MG TAB.CHEW 324 MG PO (20:52)
[2021-03-30 21:00] VITALS: BP 103/60; PULSE 71; RESP 12; O2SAT 95
[2021-03-30 21:03] LABS: Anion Gap 2 (5-15); BUN 13 mg/dL (7-18); BUN/Creat Ratio 13.4 RATIO (10-20); Calcium,Total 8.8 mg/dL (8.5-10.1); Chloride 105 mmol/L (98-107); Creatinine, Serum 0.97 mg/dL (0.55-1.02); EST Glomerular Filtration Rate 66 mL/min (>60); Est Glom Filt Rate - Afr Amer 80 mL/min (>60); Estimated Creatinine Clearance 61.22 ml/min; Glucose 106 mg/dL (74-106); Potassium 3.6 mmol/L (3.5-5.1); Sodium Level 139 mmol/L (136-145); Troponin-I HS 4.4 pg/mL (3.0-53.7)
--- NOTE | 2021-03-30 21:43 | ED.VIS.CHEST ---
HPI History of Present Illness Chief Complaint: Chest Pain Narrative Narrative: Patient presenting for evaluation secondary to chest pain. Patient has an underlying history of hypertension and cigarette smoking. Patient states that over the course the last week she has been dealing with chest pain. Patient states that it would come and go, tends to be worse with lying flat associated with feelings of lightheadedness and diaphoresis and some shortness of breath. Is not necessarily exertional. Patient states that more recently specifically tonight it has been getting worse. She states that it is associated with a tightness and heaviness type feeling. Patient denies any personal or family history of heart disease. Patient denies any DVT or PE risk factors. No personal or family history of connective tissue disease or aneurysm. Patient does state that the pain somewhat goes between her shoulder blades. Patient states that she has had somewhat similar presentations in the past secondary to panic attacks and anxiety, and she is planning a wedding and building a house but states that this does not really feel consistent with her usual panic attack or anxiety attack. Review of systems otherwise negative. [facility] Medical History Anxiety Home Medications hydrochlorothiazide 25 mg PO DAILY 12/17/17 [History Last Taken Unknown] metoprolol succinate 100 mg PO DAILY 12/17/17 [History Last Taken 04/03/18] ibuprofen 600 mg PO PRN PRN #30 tab 04/03/18 [Rx Last Taken Unknown] hydroxyzine HCl 25 mg PO TID PRN 03/30/21 [History Last Taken Unknown] Allergy/AdvReac Type Severity Reaction Status Date / Time acetaminophen Allergy Swelling Verified 03/30/21 19:50 [From Darvocet-N] propoxyphene Allergy Swelling Verified 03/30/21 19:50 [From Darvocet-N] Social History Smoking Status: Current every day smoker tobacco type: cigarettes ROS ROS ED Constitutional Constitutional ED: Denies fever(s) Eyes Eyes: Denies change in vision ENT ENT ED: Denies rhinorrhea or sore throat Cardiovascular Cardiovascular: Reports as per HPI and chest pain Respiratory/Chest Respiratory/Chest: Reports dyspnea Gastrointestinal Gastrointestinal: Denies abdominal pain, nausea or vomiting Genitourinary Genitourinary ED: Denies dysuria Musculoskeletal Musculoskeletal: Denies myalgias or neck pain Integumentary Denies rash Neurologic Neurologic: Denies headache(s), paresthesias or weakness Psychiatric Psychiatric: Denies depression Endocrine Endocrinology: Denies polydipsia or polyuria Hematologic/Lymphatic Hematologic/Lymphatic: Denies easy bleeding or easy bruising Allergic/Immunologic Allergic/Immunologic ED: Denies urticaria EXAM Physical Exam Const Vital Signs: 03/30/21 19:47 03/30/21 20:23 03/30/21 20:40 Temperature 97.9 F Temperature Source Temporal Pulse Rate 80 Respiratory Rate 16 Respiratory Effort Normal Non-Labored Blood Pressure 148/86 H Blood Pressure Mean 106 Pulse Ox 99 Oxygen Delivery Method Room Air Room Air 03/30/21 20:47 03/30/21 21:00 Temperature Temperature Source Pulse Rate 72 71 Respiratory Rate 3 L 12 Respiratory Effort Blood Pressure 112/74 103/60 Blood Pressure Mean 86 74 Pulse Ox 95 95 Oxygen Delivery Method Room Air Room Air Positive well nourished and well developed Constitutional Narrative: Very anxious appearing female no acute distress otherwise General Appearance ED: well developed and NAD HEENT Reports moist mucous membranes normocephalic and atraumatic Eyes EOMs intact bilaterally Neck no lymphadenopathy, supple and no JVD Chest Wall inspection of chest normal and palpation of chest normal Chest Narrative: No evidence of vesicular rash Resp normal respiratory effort and clear to auscultation bilaterally Auscultation: Negative for rales, rhonchi or wheezes Cardio regular rate, regular rhythm, S1 normal heart sound, S2 normal heart sound and no murmurs Peripheral Pulses: radial pulses present bilateral and posterior tibial pulses present bilateral GI normal to inspection, nondistended, normoactive bowel sounds, soft to palpation and non-tender Extremity normal to inspection Extremity Narrative: Calves are supple no palpable cord General Extremety ED: Negative for edema or tenderness General Extremity: Negative for edema Neuro oriented x3 and no sensory deficits noted Sensorium / Orientation: awake and alert Psych mental status grossly normal Skin no rashes or lesions noted Heart Score History: Moderately Suspicious ECG: Normal Age: </= 45 years Risk Factors: 1 or 2 Risk Factors Troponin: </= Normal Limit Score: 2 MDM MDM MDM Narrative Medical decision making narrative: Patient presented for evaluation secondary to chest pain. EKG was obtained was found to be unremarkable. CBC chemistry and troponin found to be unremarkable. Patient has persistent pain over the course of the last 24 hours at least and has a high-sensitivity troponin of 4.4, I do not believe that repeat troponin is indicated. Patient is capital PE RC negative, no indication for work-up for pulmonary embolism. Likewise this does not seem to be a presentation that would be consistent with that of a aortic dissection that would require further work-up. I believe the patient's symptoms are atypical, her heart score is 2 and will think she requires admission. They likely are compounded by her level of anxiety. She was given reassurance. Patient was recommended to follow-up with primary care. Patient was discharged in stable condition. Lab Data Labs: Laboratory Results - last 24 hr 03/30/21 03/30/21 20:21 20:21 WBC 11.6 H RBC 4.41 Hgb 14.4 Hct 44.3 MCV 100.5 H MCH 32.7 H MCHC 32.5 RDW Std Deviation 49.3 H RDW Coeff of [place] 13.2 Plt Count 185 MPV 10.1 Immature Gran % (Auto) 0.400 Neut % (Auto) 69.6 Lymph % (Auto) 22.0 [place] % (Auto) 6.0 Eos % (Auto) 1.6 Baso % (Auto) 0.4 Absolute Neuts (auto) 8.1 H Absolute Lymphs (auto) 2.55 Nucleated RBC % 0 Sodium 139 Potassium 3.6 Chloride 105 Carbon Dioxide 32.0 Anion Gap 2 L BUN 13 Creatinine 0.97 Estim Creat Clear Calc 61.22 Est GFR (MDRD) Af Amer 80 Est GFR (MDRD) Non-Af 66 BUN/Creatinine Ratio 13.4 Glucose 106 Calcium 8.8 Troponin I High Sens 4.4 Radiography Chest X-Ray - ED: 2 View, Read by ED Physician and Normal Discharge Plan Triage Chief Complaint: Chest Pain ED Provider: Cristobal Richardson Dx/Rx/DC Orders Clinical Impression: Chest pain Instructions: ED Chest Pain, Noncardiac Prescriptions: No Action hydrochlorothiazide 25 MG tablet 25 mg PO DAILY RF: 0 metoprolol succinate 100 MG tablet extended release 24 hr 100 mg PO DAILY RF: 0 ibuprofen 600 MG tablet 600 mg PO PRN PRN (Reason: Pain) Qty: 30 RF: 1 hydroxyzine HCl 25 mg Tablet 25 mg PO TID PRN (Reason: Anxiety) RF: 0 Primary Care Provider: Sandra Martin Referrals: Sandra Martin, [Primary Care Provider] - 3-5 Days Disposition Disposition: Home, Self Care
[2021-03-30 21:51] VITALS: BP 103/60; PULSE 65; RESP 17; O2SAT 96
== END 2021-03-30 22:03 | disposition home or self-care (01) ==
PROVIDERS: Emergency Provider Emergency Medicine; PCP Internal Medicine
DX: R07.89 Other chest pain (principal); F41.9 Anxiety disorder, unspecified; I10 Essential (primary) hypertension; Z79.899 Other long term (current) drug therapy; F17.210 Nicotine dependence, cigarettes, uncomplicated
CPT/HCPCS: 71046; 80048; 84484; 85025; 93005; 99284; A4216

== ENCOUNTER 2022-04-23 16:30 | Day surgery (SDC) | payer SELFPAY ==
[2022-04-23] VITALS (12 sets, daily range): BP systolic 119–160; BP diastolic 57–99; PULSE 72–80; RESP 14–88; TEMP 35.7–37.3; O2SAT 92–98; BMI 33.6
--- NOTE | 2022-04-23 17:07 | CT_ITS ---
We are attempting to reach an attending provider to discuss findings. An addendum with communication details will be sent when the communication is complete. STUDY: CT ABDOMEN AND PELVIS WITH CONTRAST REASON FOR EXAM: Female, 47 years old. Right lower quadrant pain. History of bilateral salpingectomy. RADIATION DOSAGE (If Supplied By Facility): CTDIvol = ( 15.24 ) mGy, DLP = ( 1242.37 ) mGycm TECHNIQUE: Transaxial images were obtained from the dome of the diaphragm to the symphysis pubis without oral contrast. IV 100mL Isovue-370 was administered. Sagittal and coronal images were reconstructed. Individualized dose optimization techniques were used for this CT. COMPARISON: None. FINDINGS: The visualized lung bases are unremarkable. The visualized portions of the heart are within normal limits. There is hepatomegaly with diffuse hepatic enlargement. Focal fatty sparing in the gallbladder fossa. Normal gallbladder and extrahepatic biliary system. Normal spleen. Normal pancreas. Normal bilateral adrenal glands. Normal right kidney. Normal left kidney. Normal ureters. Normal visualized stomach. Normal small intestine. Normal colon. Enlarged appendix with mild wall thickening and stranding in the right lower quadrant. There is no evidence of perforation or abscess. Normal abdominal aorta. Normal inferior vena cava. Normal retroperitoneum. Normal urinary bladder. Normal uterus and ovaries. There are phleboliths in pelvis. Lymphadenopathy. No free air or free fluid is seen within the peritoneal cavity . Normal abdominal wall. Mild degenerative changes lumbar spine. CT/Abdomen/Pelvis W IV Cont ONLY IMPRESSION: 1. No evidence for acute appendicitis without complication. 2. Hepatic steatosis. Electronically Signed: Floyd Thao DO at 18:09 EDT Reading Location ID and State: [facility] / [place] Tel [phone], Service support ,
--- NOTE | 2022-04-23 17:09 | EX.ED.DYSGE1 ---
HPI History of Present Illness Chief Complaint: Abd Pain Informant: patient Narrative Narrative: Patient woke up this morning. She had some discomfort toward her right lower quadrant. It did not wake her up. She did not have any symptoms last evening. Is gotten progressively worse but stayed really at the right lower quadrant. She has nausea but no vomiting. It did hurt hitting bumps on the way in. She moved her bowels this morning no blood was seen. But she does not seem to be moving the bowels or passing much gas now. She has had x2 and bilateral tubal ligation. She still has appendix and gallbladder. She has not had fevers. Nothing makes this better or worse. She has no interest in food. [facility] Medical History Anxiety Home Medications hydrochlorothiazide 25 mg tablet 25 mg PO DAILY diuretic/water pill 12/17/17 [History Last Taken Unknown] metoprolol succinate 100 mg tablet,extended release 24 hr 100 mg PO DAILY 12/17/17 [History Last Taken 04/03/18] ibuprofen 600 mg tablet 600 mg PO PRN PRN Pain #30 tabs 04/03/18 [Rx Last Taken Unknown] hydroxyzine HCl 25 mg tablet 25 mg PO TID PRN Anxiety 03/30/21 [History Last Taken Unknown] Allergy/AdvReac Type Severity Reaction Status Date / Time acetaminophen Allergy Swelling Verified 04/23/22 16:31 [From Darvocet-N] propoxyphene Allergy Swelling Verified 04/23/22 16:31 [From Darvocet-N] Social History Smoking Status: Current every day smoker tobacco type: cigarettes ROS ROS ED Constitutional Constitutional ED: Denies fever(s) or subjective ENT ENT ED: Denies rhinorrhea or sore throat Cardiovascular Cardiovascular: Denies chest pain or palpitations Respiratory/Chest Respiratory/Chest: Denies cough or dyspnea Gastrointestinal Gastrointestinal: Reports abdominal pain and nausea; Denies diarrhea, melena or vomiting Genitourinary Genitourinary ED: Denies dysuria or hematuria Musculoskeletal Musculoskeletal: Denies back pain or neck pain Integumentary Denies rash Neurologic Neurologic: Denies headache(s) Endocrine Endocrinology: Denies polydipsia or polyuria Hematologic/Lymphatic Hematologic/Lymphatic: Denies anemia Allergic/Immunologic Allergic/Immunologic ED: Denies urticaria EXAM Physical Exam Const Vital Signs: 04/23/22 16:32 04/23/22 16:33 Temperature 96.2 F L 96.2 F L Temperature Source Temporal Temporal Pulse Rate 79 79 Respiratory Rate 18 18 Blood Pressure 135/61 H 135/61 H Blood Pressure Mean 85 85 Pulse Ox 98 98 Oxygen Delivery Method Room Air Room Air Positive well nourished and well developed Constitutional Narrative: Patient is nontoxic but she does not look comfortable. General Appearance ED: well developed and NAD HEENT Reports moist mucous membranes Eyes General Eye ED: Negative for scleral icterus Neck supple Resp normal respiratory effort and clear to auscultation bilaterally Cardio regular rate and regular rhythm GI GI Narrative: Abdomen is soft and nondistended. Bowel sounds actually sound slightly decreased. She has tenderness toward the right lower quadrant. There is no tenderness that I am getting it right upper quadrant at this time. Left side is nontender. She has a mild Rovsing sign. No rebound or guarding. Back/Spine no CVA tenderness Extremity normal to inspection Neuro oriented x3 Skin no rashes or lesions noted MDM MDM MDM Narrative Medical decision making narrative: Patient's white count is elevated. Slight elevation in the hemoglobin also. Electrolytes liver function test lipase is normal. Urinalysis shows no marked abnormalities. CT is consistent with appendicitis. Patient is perimenopausal. She has had tubal ligation. She is also treated here with Zosyn. I discussed the case with surgeon, Dr. Ellis. Lab Data Attestation: I reviewed the patient's lab results. Labs: Laboratory Results - last 24 hr 04/23/22 04/23/22 04/23/22 15:17 17:15 17:15 WBC 14.6 H RBC 4.59 Hgb 15.2 H Hct 44.6 MCV 97.2 MCH 33.1 H MCHC 34.1 RDW Std Deviation 44.9 H RDW Coeff of Christiano 12.7 Plt Count 213 MPV 9.4 Immature Gran % (Auto) 0.500 Neut % (Auto) 76.3 H Lymph % (Auto) 16.3 L [place] % (Auto) 6.1 Eos % (Auto) 0.5 Baso % (Auto) 0.3 Absolute Neuts (auto) 11.2 H Absolute Lymphs (auto) 2.38 Nucleated RBC % 0 Sodium 137 Potassium 3.9 Chloride 104 Carbon Dioxide 29.0 Anion Gap 4 L BUN 16 Creatinine 0.94 Estim Creat Clear Calc 62.52 Est GFR (MDRD) Af Amer 83 Est GFR (MDRD) Non-Af 69 BUN/Creatinine Ratio 17.1 Glucose 102 Calcium 9.1 Total Bilirubin 0.60 AST 14 L ALT 30 Alkaline Phosphatase 76 Total Protein 7.3 Albumin 3.5 Globulin 3.8 Albumin/Globulin Ratio 0.9 Lipase 135 Urine Color Yellow Urine Clarity Clear Urine pH 5.0 Ur Specific [place] 1.025 Urine Protein Negative Urine Glucose (UA) Normal Urine Ketones Negative Urine Occult Blood 150 H Urine Nitrite Negative Urine Bilirubin Negative Urine Urobilinogen Normal Ur Leukocyte Esterase Negative Urine RBC 5-10 SEEN Urine WBC 0 SEEN Ur Squamous Epith Cells 5-10 SEEN Urine Bacteria 2+ Urine Mucus 0 SEEN Radiography Diagnostic Testing: Clinical Impression(s) from Imaging Studies Abdomen/Pelvis CT 04/23/22 17:07 IMPRESSION: 1. No evidence for acute appendicitis without complication. 2. Hepatic steatosis. Electronically Signed: Floyd Thao DO at 18:09 EDT Reading Location ID and State: [address] [place] [address] Tel [phone], Service support , ADDENDUM: 04/23/22 1825 IMPRESSION: 1. No evidence for acute appendicitis without complication. 2. Hepatic steatosis. N.B. : The above Results were Read Back by Floyd Thao DO to Erika Hughes RN, and understanding confirmed on 04/23/2022 18:18:16 (ET). Electronically Signed: Floyd Thao DO at 18:09 EDT Reading Location ID and State: [address] [place] [address] Tel [phone], Service support , Discharge Plan Triage Chief Complaint: Abd Pain ED Provider: Luis Antonio Benavides Dx/Rx/DC Orders Clinical Impression: Acute appendicitis Prescriptions: No Action hydrochlorothiazide 25 MG tablet 25 mg PO DAILY Label Comments: metoprolol succinate 100 MG tablet extended release 24 hr 100 mg PO DAILY ibuprofen 600 MG tablet 600 mg PO PRN PRN (Reason: Pain) Qty: 30 1RF hydroxyzine HCl 25 mg Tablet 25 mg PO TID PRN (Reason: Anxiety) Primary Care Provider: Sandra Martin Referrals: Sandra Martin DO [Primary Care Provider] - Disposition Disposition: Acute Care Hospital [facility]
[2022-04-23 17:21] LABS: Mucous, Urine 0 SEEN /hpf (<or=2+); White Blood Cells 0 SEEN /hpf (0-5)
[2022-04-23 17:23] LABS: Absolute Lymphocyte Count 2.38 X10^3/uL (0.83-4.51); Absolute Neutrophil Count 11.2 X10^3/uL (2.0-7.7); Basophil# 0.05 X10^3/uL; Basophil% 0.3 % (0-1); Eosinophil# 0.07 X10^3/uL; Eosinophils% 0.5 % (0-5); Hematocrit 44.6 % (37-47); Hemoglobin 15.2 g/dL (12.0-15.0); Lymphocyte # 2.38 X10^3/ul (0.83-4.51); Lymphocyte % 16.3 % (19-41); Mean Corp Hgb Conc 34.1 g/dL (32-36); Mean Corpuscular Hgb 33.1 pg (27.0-32.0); Mean Corpuscular Volume 97.2 fL (81-99); Mean Platelet Vol. 9.4 fl (6.2-12.0); Monocyte# 0.89 X10^3/uL; Monocyte% 6.1 % (0-10); NRBC Flagged by Analyzer 0 % (0-5); Neutrophil # 11.15 X10^3/uL (2.7-7.7); Neutrophil % 76.3 % (47-70); Platelet Count 213 K/mm3 (150-450); RBC Distribution Width CV 12.7 % (11.6-14.6); RBC Distribution Width SD 44.9 fl (35.1-43.9); Red Blood Count 4.59 M/mm3 (4.2-5.4); White Blood Count 14.6 K/mm3 (4.4-11.0)
[2022-04-23] MEDS: fentaNYL 100 MCG/2 ML Ampul 25 MCG IV ×2 (17:28→18:32)
[2022-04-23] MEDS: 0.9% Normal Saline 1,000 ML 1000 ML IV (17:28)
[2022-04-23] MEDS: DiphenhydrAMINE 50 MG/ML Syringe 25 MG IV (17:29)
[2022-04-23] MEDS: Ondansetron 4 MG/2 ML Vial IV (17:30)
[2022-04-23 17:36] LABS: Color, Urine Yellow (Yellow); Glucose, Dipstick Normal (Normal); Ketone-Dipstick Negative (Negative); Leukocyte Esterase-Dipstick Negative /ul (Negative); Nitrite-Dipstick Negative (Negative); Occult Blood-Urine 150 /ul (Negative); Protein-Dipstick Negative (Negative); Specific Gravity, Urine 1.025 (1.002-1.030); Urine Bilirubin Dipstick Negative (Negative); Urine Clarity Clear (Clear); Urine Urobilinogen Normal (Normal)
[2022-04-23 17:44] LABS: Bacteria 2+ /hpf (None Seen); Red Blood Cells-Urine 5-10 SEEN /hpf (0-5); Squamous Epithelial Cells - UA 5-10 SEEN /hpf (5-10)
[2022-04-23 17:50] LABS: ALB/GLOB Ratio 0.9 RATIO (0.9-2.4); AST(SGOT) 14 U/L (15-37); Alanine Aminotransfer ALT/SGPT 30 U/L (13-56); Albumin, Serum 3.5 g/dL (3.2-5.0); Alkaline Phosphatase 76 U/L (45-117); Anion Gap 4 (5-15); BUN 16 mg/dL (7-18); BUN/Creat Ratio 17.1 RATIO (10-20); Calcium,Total 9.1 mg/dL (8.5-10.1); Chloride 104 mmol/L (98-107); Creatinine, Serum 0.94 mg/dL (0.55-1.02); EST Glomerular Filtration Rate 69 mL/min (>60); Est Glom Filt Rate - Afr Amer 83 mL/min (>60); Estimated Creatinine Clearance 62.52 ml/min; Globulin 3.8 g/dL (2.2-4.2); Glucose 102 mg/dL (74-106); Lipase 135 U/L (73-393); Potassium 3.9 mmol/L (3.5-5.1); Protein, Total 7.3 g/dL (6.4-8.2); Sodium Level 137 mmol/L (136-145)
--- NOTE | 2022-04-23 19:00 | HP.PCM.SX_ITS ---
[facility] - General General Date of Service: 04/23/22 Chief Complaint: abdominal pain [facility] Narrative STACY PAEZ, is a 47 F who presents with right lower quadrant abdominal pain that began this morning. She denies previous such episodes of abdominal pain. She denies fevers. She presents to [facility] ED. Workup revealed elevated WBC. CT scan findings of acute appendicitis. She has a prior medical history of hypertension and BMI of 33. She has had previous C-sections and bilateral salpingectomy. [facility] Medical History Anxiety Home Medications hydrochlorothiazide 25 mg tablet 25 mg PO DAILY diuretic/water pill 12/17/17 [History Last Taken Unknown] metoprolol succinate 100 mg tablet,extended release 24 hr 100 mg PO DAILY 12/17/17 [History Last Taken 04/03/18] ibuprofen 600 mg tablet 600 mg PO PRN PRN Pain #30 tabs 04/03/18 [Rx Last Taken Unknown] hydroxyzine HCl 25 mg tablet 25 mg PO TID PRN Anxiety 03/30/21 [History Last Taken Unknown] Allergy/AdvReac Type Severity Reaction Status Date / Time acetaminophen Allergy Swelling Verified 04/23/22 16:31 [From Darvocet-N] propoxyphene Allergy Swelling Verified 04/23/22 16:31 [From Darvocet-N] Social History Smoking Status: Current every day smoker tobacco type: cigarettes ROS Constitutional Constitutional: Denies fever(s) or weight loss Cardiovascular Cardiovascular: Denies chest pain with activity or dyspnea Respiratory/Chest Respiratory/Chest: Denies dyspnea or productive cough Gastrointestinal Gastrointestinal: Reports abdominal pain Genitourinary Genitourinary: Denies hematuria Musculoskeletal Musculoskeletal: Denies abnormal gait Integumentary Integumentary: Denies jaundice Neurologic Neurologic: Denies abnormal gait Vital Signs Vital Signs Vital Signs: 04/23/22 16:32 04/23/22 16:33 Temperature 96.2 F L 96.2 F L Temperature Source Temporal Temporal Pulse Rate 79 79 Respiratory Rate 18 18 Blood Pressure 135/61 H 135/61 H Blood Pressure Mean 85 85 Pulse Ox 98 98 Oxygen Delivery Method Room Air Room Air Weight Weight: 86.183 kg Body Mass Index (BMI) 33.6 Physical Exam Const oriented x3 and no apparent distress Resp normal respiratory effort Cardio regular rate GI GI Narrative: abdomen is soft and obese and tender in right lower quadrant. Extremity no clubbing, cyanosis or edema Results Medical Records Data Attestation: I reviewed the patient's medical records Lab / Micro Data Attestation: I reviewed the patient's lab results. Result Diagrams: 04/23/22 17:15 04/23/22 17:15 Labs: Laboratory Results - last 24 hr 04/23/22 15:17: Urine Color Yellow, Urine Clarity Clear, Urine pH 5.0, Ur Specific [place] 1.025, Urine Protein Negative, Urine Glucose (UA) Normal, Urine Ketones Negative, Urine Occult Blood 150 H, Urine Nitrite Negative, Urine Bilirubin Negative, Urine Urobilinogen Normal, Ur Leukocyte Esterase Negative, Urine RBC 5-10 SEEN, Urine WBC 0 SEEN, Ur Squamous Epith Cells 5-10 SEEN, Urine Bacteria 2+, Urine Mucus 0 SEEN 04/23/22 17:15: WBC 14.6 H, RBC 4.59, Hgb 15.2 H, Hct 44.6, MCV 97.2, MCH 33.1 H , MCHC 34.1, RDW Std Deviation 44.9 H, RDW Coeff of Christiano 12.7, Plt Count 213, MPV 9.4, Immature Gran % (Auto) 0.500, Neut % (Auto) 76.3 H, Lymph % (Auto) 16.3 L, [place] % (Auto) 6.1, Eos % (Auto) 0.5, Baso % (Auto) 0.3, Absolute Neuts (auto) 11.2 H, Absolute Lymphs (auto) 2.38, Nucleated RBC % 0 04/23/22 17:15: Sodium 137, Potassium 3.9, Chloride 104, Carbon Dioxide 29.0, Anion Gap 4 L, BUN 16, Creatinine 0.94, Estim Creat Clear Calc 62.52, Est GFR (MDRD) Af Amer 83, Est GFR (MDRD) Non-Af 69, BUN/Creatinine Ratio 17.1, Glucose 102, Calcium 9.1, Total Bilirubin 0.60, AST 14 L, ALT 30, Alkaline Phosphatase 76, Total Protein 7.3, Albumin 3.5, Globulin 3.8, Albumin/Globulin Ratio 0.9, Lipase 135 Radiology Impression Abdomen/Pelvis CT 04/23/22 17:07 IMPRESSION: 1. No evidence for acute appendicitis without complication. 2. Hepatic steatosis. Electronically Signed: Floyd Thao DO at 18:09 EDT Reading Location ID and State: [facility] / [place] Tel [phone], Service support , ADDENDUM: 04/23/22 1825 IMPRESSION: 1. No evidence for acute appendicitis without complication. 2. Hepatic steatosis. N.B. : The above Results were Read Back by Floyd Thao DO to Erika Hughes RN, and understanding confirmed on 04/23/2022 18:18:16 (ET). Electronically Signed: Floyd Thao DO at 18:09 EDT Reading Location ID and State: [facility] / [place] Tel [phone], Service support , Assessment & Plan Assessment/Plan (1) Acute appendicitis: PLAN: Patient presents with localized RLQ abdominal pain and leukocytosis consistent with appendicitis. CT scan reveals enlarged appendix with wall thickening and fatty tissue stranding c/w acute appendicitis. Will plan on laparoscopic appendectomy. I have discussed the above with the patient. I have counseled the patient as to the risks of the procedure, including but not limited to: infection, bleeding, injury to any blood vessels/nerves, scar tissue, injury to any intrabdominal organs, injury to kidney/ureters, injury to bowel/bladder, intraabdominal abscess/bleeding, hernias at incisional sites, wound infections, possible open procedure, complications of anesthesia, postoperative pneumonia/cardiac problems/blood clots etc. the patient understands. She wishes to proceed. I have answered all questions to the patient?s satisfaction and the patient has no further questions.
--- NOTE | 2022-04-23 19:02 | ED.RN ---
PT ABSOLUTELY REFUSING COVID SWAB, I WILL LEAVE AND NOT HAVE SURGERY. DR. SALGADO AWARE.
[2022-04-23 19:31] LABS: Internal QC Validated? YES +Cl - CLEAR BKGD; Pregnancy, Serum, hCG Quali. NEGATIVE Negative
--- NOTE | 2022-04-23 20:20 | APP_PTH ---
PATIENT: STACY PAEZ LOC: [facility] – [place] U#:[id number] AGE/SX: 47/F ROOM: RE04/23/[address]: Dr. Millie Ellis MD : [id number] BED: DIS: 04/23/2022 SPEC #: [id number] RECD: 04/24/22 07:25 STATUS: LINDSEY RE #: [id number] AMIE: 04/23/22 20:[address]: Millie Ellis DEPT: SURGICAL PATHOLOGY RECD BY: Lidia Garces ENTERED: 04/24/22 08:16 SP TYPE: APPENDIX OTHR DR: Dr. Sandra Martin, DO Tissues: Appendix, NOS Procedures: Surgery Specimen Level III HEADER OPERATION: Laparoscopic appendectomy PRE-OP DIAGNOSIS: Acute appendicitis, hepatic steatosis TISSUE SUBMITTED: Appendix MICROSCOPIC DIAGNOSIS Appendix, appendectomy: Acute appendicitis and periappendicitis. FILIBERTO:carleen 04/25/2022 MICROSCOPIC DESCRIPTION Slides are reviewed. GROSS DESCRIPTION Received in fixative is one container labeled with the patient's name and designated appendix. The specimen consists of an appendix measuring 3 cm in length and up to 0.9 cm in diameter. The attached periappendiceal adipose tissue measures up to 1.5 cm in width. The serosa is congested. No obvious perforation is identified. The lumen contains fecal material. No fecalith is identified. Respiratory Therapy Aide sections are submitted in one cassette. / SJ:carleen 04/24/2022 :2 CPT: 24068
[2022-04-23] MEDS: Bupivacaine 0.25% 30 ML Vial (20:44)
--- NOTE | 2022-04-23 20:53 | PCM.OPRPT ---
Report of Operation Date of Procedure: 04/23/22 Pre-Operative Diagnosis: acute appendicitis Post-Operative Diagnosis: same Surgery/Procedure Performed:: laparoscopic appendectomy Description of Surgical Findings:: acute appendicitis - not perforated Surgeon: Millie Ellis entrepreneur: None Type of Anesthesia: General Anesthesiologist: Yeimi Lucas Specimen's removed: appendix Estimated Blood Loss (mL): < 10 ml Fluids Replaced: 1200 ml RL Description of Procedure: After informed consent was obtained, the patient was brought into the Operating room. Appropriate time out protocol was followed. She was placed in the supine position on the operating table. The patient was then placed under general anesthesia. The patient?s abdomen was then prepped with a sterile surgical skin preparation and sterile surgical drapes were placed. The infraumbilical skin fold was grasped with penetrating clamps and the skin and subcutaneous tissues were infiltrated with local anesthetic. A skin incision was then made. A Veress needle was then inserted into the intraabdominal cavity and checked to be in the proper position with a normal saline drop test. A CO2 pneumoperitoneum was then created. Once this was achieved, the Veress needle was removed and a 5 mm trocar was placed in its stead. A 5 mm laparoscope was then inserted into the trocar. Careful examination of the intraabdominal contents was then done. There was no evidence of injury to any internal organs from placement of the Veress needle or the trocar. Under direct visualization, a 12mm suprapubic trocar and a 5mm left lower quadrant trocar was then placed into the intraabdominal cavity. The skin and subcutaneous tissues at these sites were first infiltrated with local anesthetic. Attention was then directed to the right lower quadrant. The appendix was visualized. There was a large amount of inflammatory fatty tissue. The mesentery of the appendix was taken down by cauterizing the tissue from the free edge to the base of the appendix with the harmonic scalpel. Once the base of the appendix was freed of surrounding tissues, then the linear gastrointestinal stapling device was brought into the abdominal cavity via the 12mm port and placed across the base of the appendix. The stapling device was fired, thus stapling across the base of the appendix and transecting it simultaneously. The appendix was then placed in an Endobag and this was brought out through the suprapubic trocar. The appendix was then forwarded to Pathology for analysis. The appendiceal stump was carefully examined. There was no evidence of any active bleeding or fecal leakage. There was inflammatory oozing and therefore surgicel was applied. The surrounding tissues were also examined and there was no evidence of any active bleeding or fecal/bile leakage. There was no evidence of perforation. The intraabdominal cavity was examined and there was no evidence of further inflammation or tissue abnormality. There was no evidence of any purulent peritoneal fluid. The CO2 pneumoperitoneum was released and all trocars were removed intact. The suprapubic fascia was reapproximated with a figure-of-8 vicryl suture. Instrument, suture and sponge count were verified and correct. All skin incisions were reapproximated with monocryl suture. Cavilon and steristrips were applied to reinforce skin closure and proper sterile dressings were placed. The patient was then extubated and brought to the Recovery Room in stable condition. Complications none noted Admit VTE Documentation VTE Present on Admission: Yes VTE Mechan Device Prophylaxis: SCD's
--- NOTE | 2022-04-23 21:10 | DCINST_ITS ---
Discharge Instructions Follow Up Care Test Results: Test results from this visit will be discussed in further detail at your follow- up appointment, if applicable. Discharge Plan Admission Attending Provider: Millie Ellis Primary Care Provider: Sandra Martin Instructions Additional Instructions / Restrictions: Recommended pain control regimen - May take 600 mg ibuprofen (Motrin) and then in 3-4 hours, may take 650 mg acetaminophen (Tylenol), then in 3-4 hours may take 600 mg ibuprofen, then in 3- 4 hours may take 650 mg acetaminophen and so on for 2-3 days May take narcotic pain medication for pain that is not controlled by above and at night for comfort through the night Leave dressings in place May shower, do not scrub in the areas of the dressings as they may unravel. If they become overly soiled you may remove them but leave incision site open to air. Do not soak - no tub baths/swimming Ice applied to areas of discomfort may help No lifting/pushing/pulling greater than 20 pounds for two weeks after the surgery date. Regular diet as tolerated, drink plenty of fluids. Avoid carbonated beverages for a few days as this will cause abdominal bloating and thus discomfort after our surgery. Please call my office for an appointment to see me for follow up - in 1-2 weeks. Office number is If any questions, please call my office at and ask the wood web weaving machine operator f or the general surgery nurses desk Discharge Orders/Prescriptions Prescriptions: New oxycodone 5 mg capsule 5 mg PO Q8H PRN (Reason: pain) 3 Days Qty: 8 0RF No Action hydrochlorothiazide 25 MG tablet 25 mg PO DAILY Label Comments: metoprolol succinate 100 MG tablet extended release 24 hr 100 mg PO DAILY ibuprofen 600 MG tablet 600 mg PO PRN PRN (Reason: Pain) Qty: 30 1RF hydroxyzine HCl 25 mg Tablet 25 mg PO TID PRN (Reason: Anxiety) Referrals / Follow Up: Sandra Martin DO [Primary Care Provider] - Disposition Disposition (needs filled in before D/C Order can be placed): Home, Self Care
[2022-04-23] MEDS: Ketorolac 15 MG/ML Vial IV (21:26)
== END 2022-04-23 22:55 | disposition home or self-care (01) ==
LOC: ED 18:31 → SDC 18:59 → AC 19:00
PROVIDERS: Emergency Provider Emergency Medicine; PCP Internal Medicine; Visit Provider Surgery
PROC: 0DTJ4ZZ Resection of Appendix, Percutaneous Endoscopic Approach (ICD-10-PCS; CPT 44970; principal; 2022-04-23 20:00)
DX: K35.80 Unspecified acute appendicitis (principal); I10 Essential (primary) hypertension; F41.9 Anxiety disorder, unspecified; F17.210 Nicotine dependence, cigarettes, uncomplicated; Z79.899 Other long term (current) drug therapy
CPT/HCPCS: 44970; 00840; 74177; 80053; 81001; 83690; 84703; 85025; 88304; 99284; J7030; J7050; Q9967; A4216; J2405